=== PATIENT | female | born 1955 | race Two or more races ===

== ENCOUNTER 2018-03-13 15:56 | Inpatient (IN) | payer OTHER ==
[~2018-03-13] VITALS: Ht 154.9 cm; Wt 73.0 kg
[2018-03-13] MEDS ORDERED: LORazepam 0.5 MG TAB PO ONE (16:15)
[2018-03-13 17:12] LABS: Urine Bacteria FEW /hpf (None Seen); Urine Blood Negative /uL (Negative); Urine Specific Gravity 1.003 (1.001-1.035); Urine WBC 2 /hpf (0 - 5)
[2018-03-13 17:12] LABS: Basophils # (auto) 0.1 uL; Basophils % (auto) 0.9 % (0.0-2.0); Eosinophils # (auto) 0.1 uL; Eosinophils % (auto) 1.7 % (0.0-7.0); Hemoglobin 14.7 g/dL (12.2-16.2); Lymphocytes # (auto) 3.2 uL; Lymphocytes % (auto) 37.6 % (10.0-50.0); Mean Corpuscular Hemoglobin 30.4 pg (28.0-32.0); Mean Corpuscular Hgb Conc. 33.5 g/dL (32.0-36.0); Mean Corpuscular Volume 90.8 fL (80.0-100.0); Monocytes # (auto) 0.6 uL; Monocytes % (auto) 7.2 % (0.0-12.0); Neutrophils # (auto) 4.4 uL; Neutrophils % (auto) 52.6 % (37.0-80.0); Nucleated Red Blood Cells % 0.1 %; Platelet Count (auto) 263 10^3/uL (140-450); Red Blood Cells 4.85 10^6/uL (4.0-5.20); Red Cell Distribution Width 14.7 % (11.8-14.3); White Blood Cell 8.4 10^3/uL (4.4-10.8)
[2018-03-13 17:27] LABS: Alanine Aminotransferase 94 U/L (13-56); Albumin 3.7 g/dL (3.4-5.0); Alkaline Phosphatase 151 U/L (45-117); Anion Gap 3 (5-15); Aspartate Aminotransferase 69 U/L (15-37); BUN/Creatinine Ratio 10.5; Bilirubin, Total 0.4 mg/dL (0.2-1.0); Blood Urea Nitrogen 9 mg/dL (7-18); Calcium 9.5 mg/dL (8.5-10.1); Carbon Dioxide 29 mmol/L (21-32); Chloride 108 mmol/L (98-107); GFR African American 86 mL/min; GFR Non-African American 71 mL/min; Glucose 93 mg/dL (74-106); Potassium 5.2 mmol/L (3.5-5.1); Sodium 140 mmol/L (136-145); Total Protein 8.4 g/dL (6.4-8.2)
[2018-03-13] MEDS ORDERED: ALBUTEROL SULF 2.5 MG/0.5ML(0.5%) NEB SOLN NEB STA (17:56)
[2018-03-13] MEDS ORDERED: InsuLIN REG 1unit/0.01ml Soln (100units/ml) IV ONE (18:00)
[2018-03-13] MEDS ORDERED: CALCIUM GLUC 4.65meq/50ml D5AE 50 ML IV ONE (18:00)
[2018-03-13] MEDS ORDERED: DEXTROSE (50%) 50ML SYRG IV ONE (18:00)
[2018-03-13] MEDS ORDERED: SODIUM BICARBONATE 8.4% INJ 50ML SYRINGE IV ONE (18:00)
[2018-03-13 20:53] LABS: Amylase 50 U/L (25-115); Lipase 216 U/L (73-393)
[2018-03-13] MEDS ORDERED: HYDROcodone-ACET 5/325MG TAB PO PRN (21:15)
[2018-03-13] MEDS ORDERED: NITROGLYCERIN 0.4 MG SL TAB SL PRN (21:15)
[2018-03-13] MEDS ORDERED: TEMAZEPAM 15 MG CAP PO PRN (21:15)
[2018-03-13] MEDS ORDERED: ACETAMINOPHEN 325 MG TAB PO PRN (21:15)
[2018-03-13] MEDS ORDERED: MORPHINE SULF INJ 2 MG/ML SYRINGE 1ML IV PRN (21:15)
[2018-03-13] MEDS ORDERED: ONDANSETRON HCL 4 MG/2 ML VIAL IV PRN (21:15)
[2018-03-13] MEDS: ASPirin 81 mg TAB PO SCH (21:47)
[2018-03-13] MEDS: FAMOTIDINE 20 MG TAB PO SCH (21:47)
[2018-03-13 22:23] LABS: Potassium 3.7 mmol/L (3.5-5.1)
[2018-03-14 07:00] LABS: Basophils # (auto) 0.1 uL; Basophils % (auto) 0.8 % (0.0-2.0); Eosinophils # (auto) 0.1 uL; Eosinophils % (auto) 1.5 % (0.0-7.0); Hematocrit 38.8 % (36.0-46.0); Hemoglobin 13.3 g/dL (12.2-16.2); Lymphocytes # (auto) 2.2 uL; Lymphocytes % (auto) 30.8 % (10.0-50.0); Mean Corpuscular Hemoglobin 31.1 pg (28.0-32.0); Mean Corpuscular Hgb Conc. 34.2 g/dL (32.0-36.0); Mean Corpuscular Volume 90.9 fL (80.0-100.0); Monocytes # (auto) 0.4 uL; Monocytes % (auto) 6.1 % (0.0-12.0); Neutrophils # (auto) 4.3 uL; Neutrophils % (auto) 60.8 % (37.0-80.0); Nucleated Red Blood Cells % 0.1 %; Platelet Count (auto) 213 10^3/uL (140-450); Red Blood Cells 4.27 10^6/uL (4.0-5.20); Red Cell Distribution Width 14.5 % (11.8-14.3)
[2018-03-14 07:13] LABS: Calcium 8.6 mg/dL (8.5-10.1); Potassium 3.8 mmol/L (3.5-5.1)
[2018-03-14 07:17] LABS: Albumin 3.2 g/dL (3.4-5.0); BUN/Creatinine Ratio 16.2
[2018-03-14 07:19] LABS: Bilirubin, Total 0.8 mg/dL (0.2-1.0); Total Protein 7.1 g/dL (6.4-8.2)
[2018-03-14] MEDS ORDERED: LISI-646 PO (10:39)
[2018-03-14] MEDS ORDERED: PANT40TA2 PO (10:39)
[2018-03-14] MEDS: FAMOTIDINE 20 MG TAB PO SCH ×2 (10:57→22:25)
[2018-03-14] MEDS: ASPirin 81 mg TAB PO SCH (10:58)
[2018-03-14 13:00] VITALS: BP 124/67
[2018-03-14 17:00] VITALS: BP 110/70
[2018-03-14 22:00] VITALS: BP 126/59
[2018-03-14] MEDS: LISINOPRIL 20 MG TAB PO SCH (22:26)
[2018-03-15 05:00] VITALS: BP 108/57
[2018-03-15] MEDS ORDERED: ADENOSINE 61 MG in GIVE UN-DILUTED 0 ML IV ONE ×4 (08:30)
[2018-03-15 08:44] VITALS: BP 130/70
[2018-03-15 09:00] VITALS: BP 114/70
[2018-03-15] MEDS: FAMOTIDINE 20 MG TAB PO SCH (10:50)
[2018-03-15] MEDS: ASPirin 81 mg TAB PO SCH (10:50)
[2018-03-15] MEDS: LISINOPRIL 20 MG TAB PO SCH (10:50)
[2018-03-15 13:00] VITALS: BP 129/86
[2018-03-15 17:00] VITALS: BP 118/69
[2018-03-15 17:34] VITALS: BP 118/75
== END 2018-03-15 18:30 | disposition home or self-care (01) | DRG 206 ==
LOC: ER 16:03 → TELE 16:04 → TELE-CENTR 03-14 08:27
PROVIDERS: ADMIT Nurse Practitioner; ATTEND Family Medicine
DX: M94.0 Chondrocostal junction syndrome [Tietze] (principal); K76.0 Fatty (change of) liver, not elsewhere classified; I10 Essential (primary) hypertension; E87.5 Hyperkalemia; E66.9 Obesity, unspecified; Z68.30 Body mass index [BMI] 30.0-30.9, adult; Z90.49 Acquired absence of other specified parts of digestive tract; Z82.49 Family history of ischemic heart disease and other diseases of the circulatory system
CPT/HCPCS: 36415; 71045; 76705; 78452; 80053; 81001; 82150; 82962; 83690; 83735; 83880; 84132; 84484; 85025; 93005; 93017; 93306; 94640; 94761; 96374; 96375; J0153; J0610; J1815